=== PATIENT | female | born 1965 | race Caucasian/White ===

== ENCOUNTER 2022-04-28 14:43 | Outpatient (CLI) | payer OTHER, SELFPAY ==
--- NOTE | 2022-04-28 15:00 | CRLHL7_ITS ---
For Patients: As a result of the Century Cures Act, medical imaging exams and procedure reports are released immediately into your electronic medical record. You may view this report before your referring provider. If you have questions, please contact your health care provider. INDICATION: Postmenopausal bleeding COMPARISON: none TECHNIQUE: 2D garcia scale and color Doppler images were acquired of the pelvis using a transabdominal and transvaginal approach. FINDINGS: Right fundal intramural leiomyoma is present measuring 2.8 x 2.7 x 2.3 cm. Uterus measures 8.2 cm in length by 4.0 cm in AP diameter by 5.8 cm in transverse dimension. The myometrium has a heterogeneous echotexture. The endometrial lining measures 9 mm in composite thickness. IUD in the endometrial canal. The ovaries are not visualized. There are no suspicious fluid collections within the cul-de-sac. IMPRESSION: Endometrial thickness 9 millimeters. IUD present. Intramural fundal fibroid measuring 2.8 cm. Dictated by Lincoln Luciano MD @ 04/28/2022 4:04:36 PM (Electronically Signed)
== END 2022-04-28 14:44 | disposition home or self-care (01) ==
LOC: US 14:44
PROVIDERS: PCP Family Medicine; Visit Provider Obstetrics & Gynecology
DX: N95.0 Postmenopausal bleeding (principal); R93.89 Abnormal findings on diagnostic imaging of other specified body structures; D25.1 Intramural leiomyoma of uterus
CPT/HCPCS: 76830; 76856

== ENCOUNTER 2022-05-18 11:17 | Day surgery (SDC) | payer OTHER, SELFPAY ==
[2022-05-18] MEDS: LACTATED RINGERS 1000 ML 1,000 ML 100 ML IV (11:30)
[2022-05-18 11:34] VITALS: BMI 36.7
[2022-05-18 11:39] VITALS: BP 142/76; PULSE 73; RESP 20; TEMP 36.8; O2SAT 98
[2022-05-18] MEDS: ETHYL CHLORIDE 1 APPLICATION 1 APPLIC TOPICAL (11:58)
[2022-05-18] MEDS: SODIUM CHLORIDE 0.9 % (FLUSH) 10 ML SYRINGE IVF (11:58)
[2022-05-18 14:25] VITALS: BP 103/52; PULSE 71; RESP 16; TEMP 36.1; O2SAT 93
--- NOTE | 2022-05-18 14:30 | W.PM.GYNPROC ---
Procedure Note Date Seen: 05/18/22 Procedure Details: PREOPERATIVE DIAGNOSIS: Recurrent post menopausal bleeding Thickened endometrial stripe on ultrasound Mirena IUD in place POSTOPERATIVE DIAGNOSIS: Recurrent postmenopausal bleeding Multiple endometrial polyps PROCEDURE: Removal of Mirena IUD Hysteroscopy with polypectomy, dilation and curettage SURGEON: Chioma Dillard MD ANESTHESIA: Monitored anesthesia care, paracervical block IV FLUIDS: 800 mL crystalloid URINE OUTPUT: Less than 5 mL EBL: 10 mL SALINE DEFICIT: Accurate total not obtained, but total deficit was less than 1165 mL of saline FINDINGS: 1. On exam under anesthesia, cervix was normal appearance. Uterus was mobile, anteverted, of normal size and texture. There were no palpable adnexal masses. 2. Upon hysteroscopy, survey of the endocervix was normal. Survey of the endometrial cavity revealed numerous subcentimeter polyps throughout the endometrium. The cavity was normal in shape. COMPLICATIONS: None PROCEDURE IN DETAIL: Patient was taken to the operating room with IV running. She was positioned in dorsal lithotomy position with her legs fully supported in Yellofin stirrups. Monitored anesthesia care was administered. She was prepped and draped in the usual sterile fashion. Exam under anesthesia was performed for the above-noted findings. Speculum was inserted. Cervix visualized and grasped along the anterior lip with a single-tooth tenaculum. Paracervical block was performed for total of 10 mL of 1% lidocaine. Cervix was serially dilated to accommodate the TRUCLEAR hysteroscope. This was assembled with saline inflow and outflow in place. The line was flushed of bubbles. The hysteroscope was advanced through the cervix into the endometrial cavity for the above noted findings. The tissue morcellator was then inserted through the operating channel. Window lock was performed. Under direct visualization, the endometrial cavity was circumferentially curetted with the tissue morcellator. The hysteroscope and morcellator were then removed from the uterus. Tenaculum was removed from the anterior lip of cervix. Hemostasis was noted. Patient tolerated procedure well. She was taken to recovery area in stable condition.
--- NOTE | 2022-05-18 14:32 | W.ANESCHARGE ---
Anesthesia Charges Start Date/Time Anesthesia Start Date: 05/18/22 Anesthesia Start Time: 13:24 Stop Date/Time Anesthesia Stop Date: 05/18/22 Anesthesia Stop Time: 14:29 Summary Emergency: No
--- NOTE | 2022-05-18 14:34 | W.ANESCHARGE ---
Anesthesia Charges Start Date/Time Anesthesia Start Date: 05/18/22 Anesthesia Start Time: 13:24 Stop Date/Time Anesthesia Stop Date: 05/18/22 Anesthesia Stop Time: 14:29 Summary Emergency: No
[2022-05-18 14:43] VITALS: BP 97/45; PULSE 56; RESP 16; TEMP 36.8; O2SAT 98
[2022-05-18 14:50] VITALS: BP 122/74; PULSE 52; RESP 16; TEMP 36.8; O2SAT 96
[2022-05-18 15:10] VITALS: BP 116/66; PULSE 48; RESP 16; TEMP 36.8; O2SAT 97
== END 2022-05-18 15:35 | disposition home or self-care (01) ==
PROVIDERS: PCP Family Medicine; Visit Provider Obstetrics & Gynecology
PROC: 0UDB8ZZ Extraction of Endometrium, Via Natural or Artificial Opening Endoscopic (ICD-10-PCS; CPT 58558; principal; 2022-05-18 13:10)
DX: N95.0 Postmenopausal bleeding (principal); N84.0 Polyp of corpus uteri; R93.89 Abnormal findings on diagnostic imaging of other specified body structures; Z30.432 Encounter for removal of intrauterine contraceptive device
CPT/HCPCS: 58301; 58558; 00952; 88305; J1885; J2250; J2405; J2704; J3010; J7120

== ENCOUNTER 2023-08-16 15:07 | Outpatient (CLI) | payer OTHER, SELFPAY | END 2023-08-16 15:08 | disposition home or self-care (01) | LOC: NFLDREF 15:14 | PROVIDERS: PCP Family Medicine; Visit Provider Obstetrics & Gynecology | DX: N89.8 Other specified noninflammatory disorders of vagina (principal) | CPT/HCPCS: 87086; 87102; 87491; 87591 ==